=== PATIENT | female | born 1995 | race Caucasian/White ===

== ENCOUNTER 2016-10-21 09:05 | Emergency (ER) | payer SELFPAY ==
[2016-10-21 09:29] VITALS: TEMP 98.5; BMI 34.8
[2016-10-21 11:14] VITALS: BP 137/66; PULSE 70
--- NOTE | 2016-10-21 11:45 | EDPRACDOC ---
- General Information Chief Complaint: Skin Rash (not drug induced) Stated Complaint: RASH Time Seen by Provider: 10/21/16 11:05 Information Source: Patient Mode Of Arrival: Car Home Medications: Home Medications Cetirizine HCl [Zyrtec] 10 mg PO HS 08/13/15 Escitalopram Oxalate [Lexapro] 20 mg PO HS 08/13/15 Nexplanon Control Implant 0 mg .ROUTE .CONTINUOUS 08/13/15 HydrOXYzine HCl (Antihistamine [Atarax] 25 mg PO Q6 PRN #20 tab 10/21/16 Permethrin 60 gm TP DAILY #1 cream..g. 10/21/16 Allergies/Adverse Reactions: Allergies Allergy/AdvReac Type Severity Reaction Status Date / Time No Known Allergies Allergy Verified 10/21/16 09:29 - History of Present Illness Onset: 4 MONTHS HPI: PT PRESENTS WITH BURROWING RASH TO HER WRIST, ANTECUBITAL SPACE, AXILLA AND KNEES. STATES THIS HAS WORSENED OVER THE PAST 4 MONTHS. STATES THE ITCHING IS WORSE AT NIGHT. Rash Location: Reports: Generalized Quality: Reports: Pruritic Known Exposure To: Reports: Scabies Relevant History of: Reports: None Irritability: Moderate Pain Severity: Mild ED Past Medical History - History Reviewed Yes Nurses notes reviewed and agree except as marked - Patient Medical History Neurological History: Reports: Seizures (2014) Cardiac History: Reports: Syncope Psychological History: Reports: Anxiety. Denies: Depression, Substance Use Disorder Surgical History: Reports: Tonsillectomy/Adnoidectomy - Family Medical History Reports: Diabetes (MGF), Respiratory Disorders (Sister: asthma). Denies: Cardiac Disorders - Social Medical History Smoking Status: Heavy tobacco smoker (5 or more cigarettes/day or daily pipe/ cigar) Social History: Denies: Cocaine Use, Substance Use Disorder EDM Review of Systems - Review of Systems ROS Negative Except as Marked: Yes All systems reviewed and were negative except as marked - Physical Exam Constitutional: Alert Oriented to: Time, Person, Place Last recorded Vital Signs: Last Vital Signs Temp 98.5 F 10/21/16 09:28 Pulse 70 10/21/16 11:14 Resp 18 10/21/16 11:14 BP 137/66 10/21/16 11:14 Pulse Ox 96 10/21/16 11:14 Oxygen Pulse Oxygen Saturation 96 O2 Device Room Air Oxygen Flow Rate Fraction of Inspired Oxygen ( FIO2) - HEENT Head: Normal ( normocephalic) Eye Exam: Normal (PERRL, EOMI, Sclera white) Oropharynx: Normal (Pharynx:Moist without exudate,Gums-no swelling) Tympanic Membrane: Normal Nose: No Symptoms Reported (septum midline) Neck: Normal (FROM, trachea at midline) - Respiratory/Cardiovascular Respiratory: Normal - CTA (BBS clear to auscultation without adventitious sounds ) Cardiovascular: Normal (RRR without murmur, gallop or rub) - GI Auscultation: Normal (NABS) Palpation: Normal (Soft,No rebound or guarding, non distended) Tenderness: Non tender Elliott's Sign: Negative Rectal Exam: Deferred - Musculoskeletal Back: Normal (Non-Tender) Extremities: Normal (Normal tone, Pulses 2+ No cyanosis or edema, FROM) - Integumentary Skin: Normal, Warm, Dry Lymphatics: Normal (no adenopathy) - Neurologic Memory Impaired: Normal Motor Function: Normal (Normal tone, Pulses 2+ No cyanosis or edema, FROM) Cranial Nerve: Normal (CN II-X11 intact sensation, strength 5/5) Cerebellar: Normal Mood Description: Normal Perception: Normal - Differential Diagnosis Scabies Decision Time to Discharge: 11:45 - Departure Disposition: Home Condition: Stable Final Diagnosis: Scabies Instructions: Scabies (ED) Referrals: Siena Rosario PA [Primary Care Provider] - One Week Prescriptions: New HydrOXYzine HCl (Antihistamine [Atarax] 25 mg PO Q6 PRN #20 tab PRN Reason: Itching Permethrin 60 gm TP DAILY #1 cream..g. Discontinued Ibuprofen Tablet [Motrin] 600 mg PO TID PRN PRN Reason: Pain Hydrocodone Bit/Acetaminophen [Hydrocodon-Acetaminophen 5-325] 1 tab PO Q4H PRN #7 tab PRN Reason: Pain Cephalexin Monohydrate [Keflex] 500 mg PO Q8H #30 cap Ondansetron [Zofran Odt] 4 mg PO Q6H #20 tab.rapdis No Action Escitalopram Oxalate [Lexapro] 20 mg PO HS Cetirizine HCl [Zyrtec] 10 mg PO HS Nexplanon Control Implant 0 mg .ROUTE .CONTINUOUS Additional Instructions: WASH ALL SHEETS AND CLOTHING IS HOT WATER. APPLY CREAM FROM HEAT TO TOE, LEAVE ON FRO 8-14 HOURS THEN RINSE. MAY REAPPLY IN 7 DAYS IF LIVE MITES REAPPEAR. SINGLE APPLICATION IS USUALLY CURATIVE.
== END 2016-10-21 11:58 | disposition home or self-care (01) ==
LOC: ED 09:05 → EDMC 11:58
DX: B86 Scabies (principal)
CPT/HCPCS: 99283